=== PATIENT | male | born 1955 | race Caucasian/White ===

== ENCOUNTER 2016-11-18 06:22 | Emergency (ER) | payer BC ==
[~2016-11-18] VITALS: Ht 175.3 cm; Wt 81.2 kg
--- NOTE | 2016-11-18 07:13 | PHYS DOC ---
Past Medical History Past Medical History: Anxiety, Hypertension Past Surgical History: Other Additional Past Surgical Histo: rotator cuff Alcohol Use: Occasionally Drug Use: None Adult General Chief Complaint Chief Complaint: DIZZY/LIGHT HEADED HPI HPI 61-year-old male who complains of not feeling right after taking some Benadryl to sleep and then drinking 7 beers. Patient states he does drink on a daily basis. Denies chest pain or shortness of breath. No vomiting or diarrhea. States the room is not spinning but he just feels" a little weird." No numbness , weakness, difficulty with gait, she abnormality of strength sensation, coordination or speech. He states he feels dehydrated Review of Systems Review of Systems Constitutional: Denies fever or chills [] Eyes: Denies change in visual acuity, redness, or eye pain [] HENT: Denies nasal congestion or sore throat [] Respiratory: Denies cough or shortness of breath [] Cardiovascular: No additional information not addressed in HPI [] GI: Denies abdominal pain, nausea, vomiting, bloody stools or diarrhea [] : Denies dysuria or hematuria [] Musculoskeletal: Denies back pain or joint pain [] Integument: Denies rash or skin lesions [] Neurologic: Denies headache, focal weakness or sensory changes [] Endocrine: Denies polyuria or polydipsia [] Current Medications Current Medications Current Medications Medications (Trade) Dose Ordered Sig/Isabel Start Time Stop Time Status Last Admin Dose Admin Sodium Chloride 1,000 ml @ 1,000 mls/hr 1X ONCE 11/18/16 10:15 11/18/16 11:14 11/18/16 10:08 1,000 MLS/HR Allergies Allergies Allergies Coded Allergies Type Severity Reaction Last Updated Verified No Known Drug Allergies 11/18/16 No Physical Exam Physical Exam Well-appearing 61-year-old man alert cooperative communicative and appropriate with dry mucous membranes. No tachycardia or hypotension. Clear lungs regular rate and rhythm benign abdomen no CVA tenderness nonfocal neurologic exam with normal cranial nerves Constitutional: Well developed, well nourished, no acute distress, non-toxic appearance. [] HENT: Normocephalic, atraumatic, bilateral external ears normal, oropharynx mildly dry , no oral exudates, nose normal. [] Eyes: PERRLA, EOMI, conjunctiva normal, no discharge. [] Neck: Normal range of motion, no tenderness, supple, no stridor. [] Cardiovascular:Heart rate regular rhythm, no murmur [] Lungs & Thorax: Bilateral breath sounds clear to auscultation [] Abdomen: Bowel sounds normal, soft, no tenderness, no masses, no pulsatile masses. [] Skin: Warm, dry, no erythema, no rash. [] Back: No tenderness, no CVA tenderness. [] Extremities: No tenderness, no cyanosis, no clubbing, ROM intact, no edema. [] Neurologic: Alert and oriented X 3, normal motor function, normal sensory function, no focal deficits noted. [] Psychologic: Affect normal, judgement normal, mood normal. [] Current Patient Data Vital Signs Vital Signs Date Time Temp Pulse Resp B/P (MAP) Pulse Ox O2 Delivery O2 Flow Rate FiO2 11/18/16 10:48 63 20 175/86 (115) 99 Room Air 11/18/16 06:31 97.7 97.7 Lab Values Laboratory Tests Test 11/18/16 06:40 11/18/16 07:17 White Blood Count 8.6 x10^3/uL (4.0-11.0) Red Blood Count 3.97 x10^6/uL (4.30-5.70) L Hemoglobin 14.6 g/dL (13.0-17.5) Hematocrit 41.3 % (39.0-53.0) Mean Corpuscular Volume 104 fL (79-100) H Mean Corpuscular Hemoglobin 37 pg (25-35) H Mean Corpuscular Hemoglobin Concent 35 g/dL (31-37) Red Cell Distribution Width 12.3 % (11.5-14.5) Platelet Count 253 x10^3/uL (140-400) Neutrophils (%) (Auto) 78 % (31-73) H Lymphocytes (%) (Auto) 11 % (24-48) L Monocytes (%) (Auto) 9 % (0-9) Eosinophils (%) (Auto) 1 % (0-3) Basophils (%) (Auto) 0 % (0-3) Neutrophils # (Auto) 6.7 x10^3uL (1.8-7.7) Lymphocytes # (Auto) 1.0 x10^3/uL (1.0-4.8) Monocytes # (Auto) 0.8 x10^3/uL (0.0-1.1) Eosinophils # (Auto) 0.1 x10^3/uL (0.0-0.7) Basophils # (Auto) 0.0 x10^3/uL (0.0-0.2) Sodium Level 134 mmol/L (136-145) L Potassium Level 4.7 mmol/L (3.5-5.1) Chloride Level 98 mmol/L (98-107) Carbon Dioxide Level 21 mmol/L (21-32) Anion Gap 15 (6-14) H Blood Urea Nitrogen 55 mg/dL (8-26) H Creatinine 1.5 mg/dL (0.7-1.3) H Estimated GFR (Cockcroft-Gault) 47.3 BUN/Creatinine Ratio 37 (6-20) H Glucose Level 105 mg/dL (70-99) H Calcium Level 8.7 mg/dL (8.5-10.1) Total Bilirubin 1.1 mg/dL (0.2-1.0) H Aspartate Amino Transferase (AST) 142 U/L (15-37) H Alanine Aminotransferase (ALT) 180 U/L (16-63) H Alkaline Phosphatase 95 U/L (46-116) Troponin I Quantitative < 0.017 ng/mL (0.000-0.055) Total Protein 6.7 g/dL (6.4-8.2) Albumin 3.9 g/dL (3.4-5.0) Albumin/Globulin Ratio 1.4 (1.0-1.7) Urine Collection Type Unknown Urine Color Yellow Urine Clarity Clear Urine pH 5.0 Urine Specific [place] 1.010 Urine Protein Negative mg/dL (NEG-TRACE) Urine Glucose (UA) Negative mg/dL (NEG) Urine Ketones (Stick) Negative mg/dL (NEG) Urine Blood Negative (NEG) Urine Nitrite Negative (NEG) Urine Bilirubin Negative (NEG) Urine Urobilinogen Dipstick 0.2 mg/dL (0.2 mg/dL) Urine Leukocyte Esterase Negative (NEG) Urine RBC 0 /HPF (0-2) Urine WBC 0 /HPF (0-4) Urine Squamous Epithelial Cells Occ /LPF Urine Bacteria 0 /HPF (0-FEW) Laboratory Tests 11/18/16 06:40 Laboratory Tests 11/18/16 06:40 EKG EKG Nl sinus rhythm at 60 normal axis no STEMI noted by me [] Radiology/Procedures Radiology/Procedures Chest x-ray chronic changes no acute disease interpreted by me Course & Med Decision Making Course & Med Decision Making Pertinent Labs and Imaging studies reviewed. (See chart for details) Signs and symptoms consistent with feeling hung over after taking Benadryl and then drinking alcohol excessively. It is now the next morning and the patient doesn't feel fantastic. Nonfocal exam including full neurologic evaluation Labs pending and IV fluids initiated will follow patient for clinical improvement of suspected hangover state rule out other contributory etiology and anticipate outpatient follow-up. Labs with significant prerenal azotemia BUN/creatinine 55 and 1.5. 2.5 L of IV fluids given. Patient hemodynamically stable and well-appearing. After 1.5 L patient felt that his symptoms were resolved and reported that he felt baseline. No further workup or treatment indicated. Vital signs unremarkable. Patient agrees with outpatient follow-up. His were critical importance of close follow-up with his primary care doctor for reevaluation of his renal insufficiency with creatinine of 1. 5 repeat value in comparison to rule out worsening renal function. Further workup or treatment indicated at this time. Strict return precautions given [] Dragon Disclaimer Dragon Disclaimer This electronic medical record was generated, in whole or in part, using a voice recognition dictation system. Departure Departure Impression: Primary Impression: Dehydration Additional Impressions: Prerenal azotemia Alcohol abuse Renal insufficiency Disposition: 01 HOME, SELF-CARE Condition: IMPROVED Referrals: NO PCP (PCP) Patient Instructions: Alcohol Problems, Chronic Renal Insufficiency, Dehydration, Adult Additional Instructions: As a result of drinking excessive alcohol and not enough nonalcoholic fluids you have become dehydrated. This was reflected by your labs and addressed today with IV fluids. Your creatinine was mildly elevated at 1.5. This is a measure of your kidney function and 1.5 is in the abnormal range. His important follow- up with your primary care doctor tomorrow for reevaluation and a recheck of this creatinine to be compared to today's value. Do not take Benadryl in the setting of drinking alcohol as it may result in additive oversedation. All up with your doctor tomorrow and Return immediately for new severe or worsening symptoms. Problem Qualifiers CATHY YARBROUGH MD Nov 18, 2016 07:13
[2016-11-18] MEDS ORDERED: IV NORMAL SALINE 1000ML BAG 1,000 ML IV ONE ×4 (07:15→10:15)
[2016-11-18] MEDS ORDERED: IV NORMAL SALINE 500ML BAG 500 ML IV ONE (07:15)
--- NOTE | 2016-11-18 07:17 | EKG ---
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
[2016-11-18 07:34] LABS: BILIRUBIN,URINE NEGATIVE (NEG); GLUCOSE,URINE NEGATIVE (NEG); NITRITE,URINE NEGATIVE (NEG); PROTEIN,URINE NEGATIVE (NEG-TRACE); UROBILINOGEN,URINE 0.2 mg/dL (0.2 mg/dL)
[2016-11-18 07:34] LABS: BASO % 0 % (0-3); EOS % 1 % (0-3); HEMATOCRIT 41.3 % (39.0-53.0); HEMOGLOBIN 14.6 g/dL (13.0-17.5); LYMPH % 11 % (24-48); MEAN CORPUSCULAR HEMOGLOBIN 37 pg (25-35); MEAN CORPUSCULAR HGB CONC 35 g/dL (31-37); MEAN CORPUSCULAR VOLUME 104 fL (79-100); MONO % 9 % (0-9); NEUT % 78 % (31-73); PLATELET COUNT 253 x10^3/uL (140-400); RED BLOOD COUNT 3.97 x10^6/uL (4.30-5.70); RED CELL DISTRIBUTION WIDTH 12.3 % (11.5-14.5); WHITE BLOOD COUNT 8.6 x10^3/uL (4.0-11.0)
--- NOTE | 2016-11-18 07:35 | RAD ---
Exam performed: One view chest. Indication: medical workup/ DIZZINESS Date of Service: 11/18/2016 9:05 AM Comparison: Two-view chest from 04/05/12. Single AP upright portable view chest findings: Cardiomediastinal silhouette is within upper limits of normal. No acute infiltrates, effusion or pneumothorax is detected. Mildly prominent interstitial markings are seen in both lungs, likely chronic. The bony structures are normal. Impression: No acute cardiopulmonary process is detected.
[2016-11-18 07:40] LABS: CALCIUM 8.7 mg/dL (8.5-10.1); CREATININE 1.5 mg/dL (0.7-1.3); GFR 47.3; POTASSIUM 4.7 mmol/L (3.5-5.1)
[2016-11-18 07:46] LABS: ALBUMIN 3.9 g/dL (3.4-5.0); ALBUMIN/GLOBULIN RATIO 1.4 (1.0-1.7); TOTAL BILIRUBIN 1.1 mg/dL (0.2-1.0); TOTAL PROTEIN 6.7 g/dL (6.4-8.2)
[2016-11-18 07:53] LABS: BACTERIA,URINE 0 /HPF (0-FEW); RBC,URINE 0 /HPF (0-2); SQUAMOUS EPITHELIAL CELL,UR OCC /LPF; WBC,URINE 0 /HPF (0-4)
[2016-11-18 10:48] VITALS: BP 175/86
[2016-11-18] MEDS ORDERED: THIAMINE 100 MG TABLET. PO SCH (11:08)
== END 2016-11-18 11:26 | disposition home or self-care (01) ==
LOC: ER 06:22
DX: E86.0 Dehydration (principal); R79.89 Other specified abnormal findings of blood chemistry; F10.10 Alcohol abuse, uncomplicated; N28.9 Disorder of kidney and ureter, unspecified; I10 Essential (primary) hypertension
CPT/HCPCS: 36415; 71010; 80053; 81001; 84484; 85025; 93005; 96360; 96361; 99285; J7030; J7040

== ENCOUNTER 2017-06-05 14:24 | Emergency (ER) | payer BC ==
[2017-06-05] MEDS: IV NORMAL SALINE 1000ML BAG 1,000 ML IV ×2 (15:13→16:15)
[2017-06-05 15:24] LABS: ADD MAN DIFF? NO
[2017-06-05 15:29] LABS: BASO % 0 % (0-3); EOS % 1 % (0-3); HEMATOCRIT 46.4 % (39.0-53.0); HEMOGLOBIN 15.8 g/dL (13.0-17.5); LYMPH % 29 % (24-48); MEAN CORPUSCULAR HEMOGLOBIN 36 pg (25-35); MEAN CORPUSCULAR HGB CONC 34 g/dL (31-37); MEAN CORPUSCULAR VOLUME 105 fL (79-100); MONO # 0.2 x10^3/uL (0.0-1.1); MONO % 3 % (0-9); NEUT # 4.6 x10^3uL (1.8-7.7); NEUT % 67 % (31-73); PLATELET COUNT 316 x10^3/uL (140-400); RED BLOOD COUNT 4.43 x10^6/uL (4.30-5.70); RED CELL DISTRIBUTION WIDTH 13.5 % (11.5-14.5); WHITE BLOOD COUNT 6.9 x10^3/uL (4.0-11.0)
[2017-06-05 15:39] LABS: ANION GAP 14 (6-14); BLOOD UREA NITROGEN 26 mg/dL (8-26); BUN/CREATININE RATIO 10 (6-20); CALCIUM 9.6 mg/dL (8.5-10.1); CARBON DIOXIDE 22 mmol/L (21-32); CHLORIDE 103 mmol/L (98-107); CREATININE 2.5 mg/dL (0.7-1.3); GFR 26.2; GLUCOSE 138 mg/dL (70-99); POTASSIUM 4.2 mmol/L (3.5-5.1); SODIUM 139 mmol/L (136-145)
[2017-06-05 15:45] LABS: ALBUMIN 3.8 g/dL (3.4-5.0); ALBUMIN/GLOBULIN RATIO 1.1 (1.0-1.7); ALK PHOS 45 U/L (46-116); ALT (SGPT) 34 U/L (16-63); AST (SGOT) 36 U/L (15-37); TOTAL BILIRUBIN 0.7 mg/dL (0.2-1.0); TOTAL PROTEIN 7.2 g/dL (6.4-8.2)
[2017-06-05 15:49] LABS: TROPONINI < 0.017 ng/mL (0.000-0.055)
[2017-06-05 17:38] LABS: BILIRUBIN,URINE NEGATIVE (NEG); CLARITY,URINE CLEAR; COLOR,URINE YELLOW; GLUCOSE,URINE NEGATIVE (NEG); NITRITE,URINE NEGATIVE (NEG); PROTEIN,URINE NEGATIVE (NEG-TRACE); UROBILINOGEN,URINE 0.2 mg/dL (0.2 mg/dL)
[2017-06-05 17:46] LABS: BACTERIA,URINE 0 /HPF (0-FEW); RBC,URINE 0 /HPF (0-2)
[2017-06-05 17:47] LABS: GRANULAR CASTS,URINE OCCASIONAL /HPF; HYALINE CASTS, URINE MANY /HPF; WAXY CASTS,URINE OCCASIONAL /HPF
== END 2017-06-05 18:32 | disposition home or self-care (01) ==
LOC: ER 14:24
DX: R55 Syncope and collapse (principal); N17.8 Other acute kidney failure; I95.9 Hypotension, unspecified; F41.9 Anxiety disorder, unspecified; I10 Essential (primary) hypertension; Z79.899 Other long term (current) drug therapy
CPT/HCPCS: 36415; 71045; 80053; 81001; 84484; 85025; 93005; 96360; 96361; 99285-25; J7030

== ENCOUNTER 2020-03-02 02:54 | Emergency (ER) | payer MEDICARE, BC ==
[~2020-03-02] VITALS: Ht 175.3 cm; Wt 89.1 kg
--- NOTE | 2020-03-02 03:33 | PHYS DOC ---
Past Medical History Past Medical History: Anxiety, Hypertension Past Surgical History: Other Additional Past Surgical Histo: rotator cuff Smoking Status: Never Smoker Alcohol Use: Occasionally Drug Use: None General Adult EDM: Chief Complaint: RIB PAIN HPI: HPI: Patient is a 64 year old male who arrives with chief complaint of lateral rib pain. Patient had a chiropractic adjustment done on March 01 and while they were doing adjustment he felt a pop and heard a crack on his right lateral ribs. Patient describes currently 4 out of 10 pain gets a lot more severe in nature when he takes a deep breath. Pain is located on the right lateral ribs and is nonradiating. Patient denies any fever chills or cough. Patient denies any shortness of breath. Pain is sharp in nature. Review of Systems: Review of Systems: Constitutional: Denies fever or chills. [] Eyes: Denies change in visual acuity. [] HENT: Denies nasal congestion or sore throat. [] Respiratory: Denies cough or shortness of breath. [] Cardiovascular: Complains of right lateral chest pain but no edema. [] GI: Denies abdominal pain, nausea, vomiting, bloody stools or diarrhea. [] : Denies dysuria. [] Musculoskeletal: Denies back pain or joint pain. [] Integument: Denies rash. [] Neurologic: Denies headache, focal weakness or sensory changes. [] Endocrine: Denies polyuria or polydipsia. [] Lymphatic: Denies swollen glands. [] Psychiatric: Denies depression or anxiety. [] Heart Score: Risk Factors: Risk Factors: DM, Current or recent (<one month) smoker, HTN, HLP, family history of CAD, obesity. Risk Scores: Score 0 - 3: 2.5% MACE over next 6 weeks - Discharge Home Score 4 - 6: 20.3% MACE over next 6 weeks - Admit for Clinical Observation Score 7 - 10: 72.7% MACE over next 6 weeks - Early Invasive Strategies Allergies: Allergies: Allergies Coded Allergies Type Severity Reaction Last Updated Verified No Known Drug Allergies 11/18/16 No Physical Exam: PE: Constitutional: Well developed, well nourished, no acute distress, non-toxic appearance. [] HENT: Normocephalic, atraumatic, bilateral external ears normal, no trismus nose normal. [] Eyes: PERRLA, EOMI, conjunctiva normal, no discharge. [] Neck: Normal range of motion, no tenderness, supple, no stridor. [] Cardiovascular:Heart rate regular rhythm, peripheral pulses are intact cap refill is brisk Lungs & Thorax: Bilateral breath sounds clear, no respiratory distress, tender to palpate on the right inferior lateral ribs Abdomen: Bowel sounds normal, soft, no tenderness, no masses, no pulsatile masses. [] Skin: Warm, dry, no erythema, no rash. [] Back: No tenderness, no CVA tenderness. [] Extremities: No tenderness, no cyanosis, no clubbing, ROM intact, no edema. [] Neurologic: Alert and oriented X 3, normal motor function, normal sensory function, no focal deficits noted. [] Psychologic: Affect normal, judgement normal, mood normal. [] Current Patient Data: Vital Signs: Vital Signs Date Time Temp Pulse Resp B/P (MAP) Pulse Ox O2 Delivery O2 Flow Rate FiO2 03/02/20 02:58 97.7 61 20 133/61 (85) 97 Room Air 97.7 EKG: EKG: [] Radiology/Procedures: Radiology/Procedures: [][facility] [address] [place], [place] [id number] IMAGING REPORT Signed PATIENT: MAXWELL LOCKE ACCOUNT: [id number] : 1955 LOCATION: ER AGE: 64 SEX: M EXAM STATUS: REG ER ORD. PHYSICIAN: JORDON ROE MD REASON: injured right lateral ribs w/ adjustment on 03/01 PROCEDURE: RIBS RIGHT AND PA CHEST RIBS RIGHT AND PA CHEST DATE: 03/02/2020 3:20 AM INDICATION: Reason: injured right lateral ribs w/ adjustment on 03/01 / . Instructions: / History: COMPARISON: None available. FINDINGS: Chest: Heart size is within normal limits. No focal consolidations are seen. No evidence for pulmonary edema, pleural effusion, or pneumothorax. Bones: No radiographic evidence for a displaced, right-sided rib fracture is seen. IMPRESSION: No radiographic evidence for right-sided rib fracture. Electronically signed by: Karen Olguin MD (03/02/2020 4:00 AM) [facility] DICTATED and SIGNED BY: KAREN OLGUIN MD DATE: 03/02/20 [id number] Course & Med Decision Making: Course & Med Decision Making Pertinent Labs and Imaging studies reviewed. (See chart for details) [] 64-year-old male presents with right lateral rib pain following a chiropractic adjustment. X-ray that is negative for pneumothorax or displaced rib fracture. Discussed with patient stability of nondisplaced rib fracture and told him he will need to take ISS machine 10 times per hour while awake and pain meds. Patient given return precautions. Dragon Disclaimer: Dragon Disclaimer: This electronic medical record was generated, in whole or in part, using a voice recognition dictation system. Departure Departure Impression: Primary Impression: Contusion of rib on right side Disposition: 01 DC HOME SELF CARE/HOMELESS Condition: STABLE Referrals: KRZYSZTOF CORTES MD (PCP) 2-3 days Patient Instructions: Rib Contusion Additional Instructions: EMERGENCY DEPARTMENT GENERAL DISCHARGE INSTRUCTIONS THANK YOU for coming to [facility] Emergency Department (ED) today and trusting us with your care. We trust that you had a positive experience in our Emergency Department. If you wish to speak to the department Management you can contact the economics department chair at . YOUR FOLLOW UP INSTRUCTIONS ARE FOLLOWS: Do you have a private doctor? If you do not have a private doctor, please ask for a resource list of physicians or clinics that may be able to assist you with follow up care. The Emergency Physician has interpreted your x-rays. The X-ray specialist will also review them. If there is a change in the findings you will be notified in 48 hours when at all possible. A lab test or lab culture may have been done, your results will be reviewed and you will be notified if you need a change in treatment. ADDITIONAL INSTRUCTIONS AND INFORMATION Your care today has been supervised by a physician who is specially trained in emergency care. Many problems require more than one evaluation for a complete diagnosis and treatment. We recommend that you schedule your follow up appointment as recommended to ensure complete treatment of your illness or injury. If you are unable to obtain follow up care and continue to have a problem, or if your condition worsens we recommend that you return to the ED. We are not able to safely determine your condition over the phone nor are we able to give sound medical advice over the phone. For these safety reasons, if you call for medical advice we will ask you to come to the ED for further evaluation If you have any questions regarding these discharge instructions please call the ED at . SAFETY INFORMATION In the interest of safety, wellness, and injury prevention; we encourage you to wear your seatbelt, if you smoke; quit smoking, and we encourage your family to use protective helmet for bicycling and other sporting events that present an increased risk for head injury. IF YOUR SYMPTOMS WORSEN OR NEW SYMPTOMS DEVELOP, OR YOU HAVE CONCERNS ABOUT YOUR CONDITION; OR IF YOUR CONDITION WORSENS WHILE YOU ARE WAITING FOR YOUR FOLLOW UP APPOINTMENT; EITHER CONTACT YOUR PRIMARY CARE DOCTOR, THE PHYSICIAN WHOSE NAME AND NUMBER YOU WERE GIVEN, OR RETURN TO THE ED IMMEDIATELY. Scripts Hydrocodone/Apap 5-325 (NORCO 5-325 TABLET) 1 Each Tablet 1-2 EACH PO PRN Q6HRS PRN for PAIN, #15 as needed for pain Prov: JORDON ROE MD 03/02/20 JORDON ROE MD Mar 02, 2020 03:33
--- NOTE | 2020-03-02 04:04 | RAD ---
RIBS RIGHT AND PA CHEST DATE: 03/02/2020 3:20 AM INDICATION: Reason: injured right lateral ribs w/ adjustment on 03/01. Instructions: / History: COMPARISON: None available. FINDINGS: Chest: Heart size is within normal limits. No focal consolidations are seen. No evidence for pulmonary edema, pleural effusion, or pneumothorax. Bones: No radiographic evidence for a displaced, right-sided rib fracture is seen. IMPRESSION: No radiographic evidence for right-sided rib fracture. Electronically signed by: Popeye Olguin MD (03/02/2020 4:00 AM) [facility]
[2020-03-02] MEDS ORDERED: HYDR-3164 PO (04:17)
[2020-03-02 04:50] VITALS: BP 159/70
== END 2020-03-02 04:52 | disposition home or self-care (01) ==
LOC: ER 02:54
DX: S20.211A Contusion of right front wall of thorax, initial encounter (principal); I10 Essential (primary) hypertension; X50.9XXA Other and unspecified overexertion or strenuous movements or postures, initial encounter; Y93.89 Activity, other specified; Y92.89 Other specified places as the place of occurrence of the external cause; Y99.8 Other external cause status
CPT/HCPCS: 71101; 99283